=== PATIENT | female | born 1945 | race Caucasian/White ===

== ENCOUNTER 2016-12-07 20:41 | Emergency (ER) | payer MEDICARE, OTHER ==
[~2016-12-07] VITALS: Ht 160 cm; Wt 102.0 kg
[2016-12-07 21:23] VITALS: BP 178/79; PULSE 77; RESP 16; O2SAT 97
--- NOTE | 2016-12-07 21:48 | ED.REPORT ---
HPI-Headache Date of Service Dec 07, 2016 ED Provider: Miguel Medel MD A 71 year old female with a history of migraines, asthma, CHF and mechanical mitral valve on anticoagulation medication presents to the ED complaining of a migraine. The migraine began this morning and gradually worsened, becoming more intense than her usual migraines. She took two Imitrex without relief. The migraine is right sided and accompanied by photophobia, shaking and nausea, though she denies vomiting or difficulty with vision or speech. The pt was in a car for several hours today. Nursing Notes Stated Complaint: MIGRAINE/ NAUSEA Chief Complaint: Headache Nursing Notes Reviewed: Yes Allergies: Coded Allergies: No Known Allergies (Unverified , 12/07/16) Scheduled PRN Prochlorperazine Maleate (Compazine Suppository) 25 Mg Supp.rect 25 MG RC Q8 PRN PRN For Nausea/Vomiting General Time Seen by MD: 21:47 Chief Complaint Migraine headache Hx Obtained From: Patient Arrived By: Walk-in Sudden in Onset?: No Recent Healthcare: No recent hospitalization Similar Sx Previous: Yes Past Medical History Past Medical History migraines asthma mechanical mitral valve, anticoagulated CHF Past Surgical History mechanical mitral valve Smoking History Unknown if Ever Smoker Social History Other Social History: Good social support Ambulatory Status Independent Review of Systems Review of Systems Note: denies difficulty speaking Eyes: Reports: Photophobia GI: Reports: Nausea, Denies: Vomiting Musculoskeletal: Denies: Back pain, Neck pain Skin: Denies Rash Neurologic: Reports: Headache, Shaking, Denies: Vision change Complete sys rev & neg: except as marked. Physical Exam Initial Vital Signs Vital Signs (First) Date Time Temp Pulse Resp B/P Pulse Ox O2 Delivery O2 Flow Rate FiO2 12/07/16 21:23 36.8 77 16 178/79 97 Room Air Initial VS: Reviewed General/Constitutional: Awake, Alert Head / Eyes: Atraumatic, Normocephalic, PERRL, EOMI photophobic Neck: Atraumatic, Supple, Full range of motion Neurologic: Oriented X3, Speech NL, No motor deficits, No sensory deficits, CN II - XII intact ENT: Atraumatic, Airway patent, Mucous membranes moist Respiratory / Chest: Atraumatic, Breath sounds NL, Breath sounds = bilat, No respiratory distress Cardiovascular: Heart rate NL, Regular rhythm, Heart sounds NL Abdomen: Atraumatic, Soft, Non-tender Skin: Atraumatic, Color NL, No rash, Warm, Dry Psychiatric: Affect NL, Mood NL Back: Atraumatic, Full range of motion Upper Extremity / MS: Atraumatic, Full range of motion Lower Extremity / Pelvis / MS: Atraumatic, Full range of motion Interpretation & Diagnostics Lab Results Interpretation Result Diagram: 12/07/16 2218 12/07/16 2218 Test 12/07/16 22:18 White Blood Count 11.7th/mm3 (3.8-10.1) Red Blood Count 4.36mil/mm3 (3.90-5.20) Hemoglobin 12.6g/dL (12.0-15.6) Hematocrit 39.2% (35.0-46.0) Mean Corpuscular Volume 90fL (81-100) Mean Corpuscular Hemoglobin 28.9pg (27.0-35.0) Mean Corpuscular Hemoglobin Concent 32.1% (32.0-37.0) Red Cell Distribution Width 14.5% (12.3-15.4) Platelet Count 262bil/L (150-400) Neutrophils (%) (Auto) 83% (40-74) Lymphocytes (%) (Auto) 10% (14-46) Monocytes (%) (Auto) 5% (4-12) Eosinophils (%) (Auto) 2% (0-5) Basophils (%) (Auto) 0% (0-3) Prothrombin Time 32.8sec (8.1-12.5) Prothromb Time International Ratio 3.00ratio Sodium Level 140mEq/L (134-144) Potassium Level 4.1mEq/L (3.5-5.2) Chloride Level 100mEq/L (97-108) Carbon Dioxide Level 23mmol/L (18-29) Blood Urea Nitrogen 15mg/dL (8-27) Creatinine 0.77mg/dL (0.57-1.00) Estimat Glomerular Filtration Rate 106mL/min (>59) Glucose Level 130mg/dL (60-99) Calcium Level 9.5mg/dL (8.5-10.1) Re-Eval/Medical Decision Med Decision/Clinical Course 71-year-old with a history of migraines presents with a fairly typical migraine. She states it is a bit worse and some others, but was slow in onset, without neurologic deficit, and now completely relieved after meds. I do not suspect intracranial hemorrhage, despite her chronic warfarin for a mechanical valve. She is anticoagulated adequately for a valve at 3.00. Discharge now in stable improved condition. Prompt return if worse. Re-Evaluation/Progress : Time of Eval: 23:25 )( Patient Status: Condition improved Re-Evaluation/Progress Note: Pt rechecked, who is resting comfortably. The diagnosis and plan for discharge are discussed. The pt understands and agrees with the plan. All questions are addressed at this time. Counseled Regarding: Diagnosis, Lab results, Need for follow-up, When/why to return to ED Discharge & Departure Impression: Primary Impression: Migraine Disposition: Home Discharge Condition All VS Reviewed: Yes Condition: Stable Patient Instructions: Migraine Headache (ED) Additional Instructions: Return promptly if your headache is worse or new symptoms develop. At this point, you are not over anticoagulated, but your INR is three. Stay well hydrated. Follow up with your doctor in the office. Return if any immediate issues. Compazine suppository can be effective against headache and also nausea, if your sumatriptan and is ineffective. Sumatriptan and is generally more effective as a subcutaneous shot, and your doctor can consider prescribing that as an alternative. Referrals: [facility] [place] Attestation Portions of this note were transcribed by Lorenzo Vera. I, Dr. Medel personally performed the history, physical exam and medical decision-making; I reviewed and confirmed the accuracy of the information in the transcribed note. Signed by: Farheen Stokes, 12/07/2016 and [id number]. copies to: [facility] Miguel Medel MD Dec 07, 2016 21:47 LORENZO VERA Dec 07, 2016 21:54
[2016-12-07] MEDS ORDERED: 0.9% Sodium Chloride 1,000 ML IV ONE (22:01)
[2016-12-07] MEDS ORDERED: Dexamethasone 10 mg/mL Inj IVPUSH ONE (22:05)
[2016-12-07] MEDS ORDERED: Haloperidol 5 mg/mL Inj IVPUSH ONE (22:05)
[2016-12-07] MEDS ORDERED: Ondansetron 2 mg/mL 2 mL Inj IVPUSH ONE (22:05)
[2016-12-07 22:22] LABS: MONOCYTES % (AUTO) 5 % (4-12); Mean Corpuscular Hemoglobin 28.9 pg (27.0-35.0); Mean Corpuscular Volume 90 fL (81-100); NEUTROPHILS % (AUTO) 83 % (40-74); Platelet Count 262 bil/L (150-400)
[2016-12-07 22:23] LABS: BASOPHILS % (AUTO) 0 % (0-3); EOSINOPHILS % (AUTO) 2 % (0-5)
[2016-12-07] MEDS ORDERED: PROC25SU30 RC (23:31)
[2016-12-07 23:50] VITALS: BP 158/78; PULSE 70; RESP 16; O2SAT 96
== END 2016-12-07 23:51 | disposition home or self-care (01) ==
LOC: SED 20:41
DX: G43.909 Migraine, unspecified, not intractable, without status migrainosus (principal); I50.9 Heart failure, unspecified; J45.909 Unspecified asthma, uncomplicated; Z79.01 Long term (current) use of anticoagulants
CPT/HCPCS: 36415; 80048; 85025; 85610; 96361; 96374; 96375; 99284; J1100; J1200; J1630; J2405; J7030

== ENCOUNTER 2016-12-10 09:34 | Emergency (ER) | payer MEDICARE, OTHER ==
[~2016-12-10] VITALS: Ht 160 cm; Wt 104.0 kg
[~2016-12-10 09:34] MED LIST: PROC25SU30 RC
[2016-12-10 09:38] VITALS: BP 119/70; PULSE 66; RESP 10; O2SAT 96
--- NOTE | 2016-12-10 09:45 | ED.REPORT ---
HPI-Headache Date of Service Dec 10, 2016 ED Provider: Zbigniew Gold MD A 71 year old female with a history of migraines, asthma, CHF and mechanical mitral valve on anticoagulation medication presents to the ED complaining of a migraine that began 3 days ago. Patient was seen at Urgent Care and received Toradol with no relief and was sent to the ED to help control her pain. She took Imitrex this morning with no relief. Recent associated symptoms include nausea, photophobia and neck pain. She denies dysphagia, fever, chills, visual disturbances, numbness/tingling or weakness. Patient was seen in the ED on 12/07 for identical symptoms and was discharged in good condition. Her last INR was 3. Nursing Notes Stated Complaint: MIGRAINE Chief Complaint: Headache Nursing Notes Reviewed: Yes Allergies: Coded Allergies: No Known Allergies (Unverified , 12/07/16) Scheduled PRN Prochlorperazine Maleate (Compazine Suppository) 25 Mg Supp.rect 25 MG RC Q8 PRN PRN For Nausea/Vomiting General Time Seen by MD: 09:43 Chief Complaint Migraine headache Hx Obtained From: Patient Arrived By: Walk-in Sudden in Onset?: No Onset Occurred: 3 days ago Symptom Duration: Since onset Location: : Frontal right Quality: Painful Radiation: : Does not radiate Severity: Current: Mild Severity: Maximum: Mild Associated with: Reports: Nausea, Photophobia, Denies: Difficulty speaking, Fever, Visual disturbance Pertinent Negative: Pt denies other symptoms Recent Healthcare: No recent hospitalization, Recent doctor visit Risk-Headache )( SAH Risk Stratification RF Statements: Risk factors reviewed )( IC Mass Risk Stratification RF Statements: Risk factors reviewed Past Medical History Past Medical History Migraines Asthma Mechanical mitral valve, anticoagulated CHF Past Surgical History Mechanical mitral valve Smoking History Unknown if Ever Smoker Social History Other Social History: Good social support, Local resident Ambulatory Status Independent Review of Systems Denies - dysphagia Constitutional: Denies: Chills, Fever Eyes: Reports: Photophobia, Denies: Blurred bilateral GI: Reports: Nausea Musculoskeletal: Reports: Neck pain Neurologic: Reports: Headache, Denies: Numbness, Slurred speech, Vision change, Weakness Complete sys rev & neg: except as marked. Physical Exam Initial Vital Signs Vital Signs (First) Date Time Temp Pulse Resp B/P Pulse Ox O2 Delivery O2 Flow Rate FiO2 12/10/16 09:38 36.3 66 10 119/70 96 Room Air Initial VS: Reviewed Extremities: Vascular intact, Neuro intact, No swelling, No tenderness Skin: Warm, Dry, No cyanosis Psychiatric: Mood/affect normal, Behavior normal, Normal thought content General/Constitutional: Awake, Alert, No acute distress Head / Eyes: Atraumatic, Normocephalic, PERRL Pupils: Positive: Photophobia L, Photophobia R Neck: Atraumatic, Supple, Full range of motion Neurologic: Oriented X3, Speech NL, No motor deficits, No sensory deficits, CN II - XII intact, Reflexes equal bilat NEURO: 5/5 strength Respiratory / Chest: Atraumatic, Breath sounds NL, Breath sounds = bilat, No respiratory distress Cardiovascular: Heart rate NL, Regular rhythm, No murmurs Heart Sounds / Murmur: Positive: Click present (Click S1 S2 L Upper sternal boarder) Abdomen: Atraumatic, Soft Re-Eval/Medical Decision Med Decision/Clinical Course 71-year-old female long history of migraine headaches presenting with her typical migraine headache. She has symptomsofmeningitisor CVA. She has no focal neurological deficits. She reports this is typical of her chronic migraine headaches. She was given Toradol and Reglan and her symptoms resolved. She is to go home. Do not suspect CVA given no focal neuro deficits. Do not suspect meningitis given no fever, nuchal rigidity or other meningeal signs. Patient was discharged home with return precautions. Re-Evaluation/Progress : Time of Eval: 10:50 )( Patient Status: Condition improved, Pain improved Re-Evaluation/Progress Note: Her headache has improved. She is informed of her results and diagnosis. All questions about the intended treatment plan are addressed. Counseled Regarding: Diagnosis, Need for follow-up, When/why to return to ED Discharge & Departure Impression: Primary Impression: Migraine headache Migraine type: unspecified Status migrainosus presence: without status migrainosus Intractability: not intractable Qualified Code: G43.909 - Migraine, unspecified, not intractable, without status migrainosus Disposition: Home Discharge Condition All VS Reviewed: Yes Condition: Improved Patient Instructions: Migraine Headache (ED) Additional Instructions: Thank you for trusting us with your care this morning. Your emergency department results are reassuring that there is no dangerous cause for concern at this time and your symptoms are likely due to a migraine. Take 1-2 Tylenol every 6 hours as needed for pain. Schedule a follow-up appointment with your primary care physician in the next 2- 3 days for a recheck. Please return to the emergency department for any new or worsening symptoms including any worsening, neck pain, visual disturbances, difficulty speaking or swallowing, high fevers, shaking chills, uncontrollable nausea or vomiting. Referrals: [facility] (PCP) [facility] Sc[facility] Attestation Portions of this note were transcribed by Venkatesh Bose. I, Dr. Gold personally performed the history, physical exam and medical decision-making; I reviewed and confirmed the accuracy of the information in the transcribed note. Signed by: Farheen Gustafson, 12/10/16 1055. Zbigniew Gold MD Dec 10, 2016 09:45 VENKATESH BOSE Dec 10, 2016 09:47
[2016-12-10] MEDS ORDERED: MetoCLOpramide 5 mg/mL 2 mL Inj IM ONE (09:55)
[2016-12-10 10:59] VITALS: BP 143/87; PULSE 68; RESP 17; O2SAT 97
== END 2016-12-10 11:00 | disposition home or self-care (01) ==
LOC: SED 09:34
DX: G43.909 Migraine, unspecified, not intractable, without status migrainosus (principal); I50.9 Heart failure, unspecified
CPT/HCPCS: 96372; 99284; J1885; J2765